=== PATIENT | male | born 1990 | race American Indian/Alaskan Native ===

== ENCOUNTER 2016-10-06 20:38 | Emergency (ER) | payer SELFPAY ==
--- NOTE | 2016-10-06 23:11 | Emergency Department Report ---
HPI - General Chief Complaint: Extremity Injury, Upper Time Seen by Provider: 10/06/16 22:44 - HPI HPI: he is a 26-year-old male presents to ED today for right hand swelling and pain 1 day. Patient states he was in the tub about to 3 hours ago when he fell he hit his hand on the top fell on his hand. Patient states he did not hit his head during the fall and had no loss of consciousness. Patient states he is injured his hand didn't think it's broken. He denies fevers/chills/nausea/vomiting/abdominal pain/chest pain shortness of breath or any other problems ED Past Medical Hx - Past Medical History Previous Medical History?: No - Surgical History Past Surgical History?: No - Social History Smoking Status: Unknown if ever smoked Substance Use Type: None - Medications Home Medications: Home Medications Medication Instructions Recorded Confirmed Last Taken Type Cyclobenzaprine [Flexeril] 10 mg PO QHS PRN #24 tablet 10/07/16 Unknown Rx HYDROcodone/APAP 5-325 [Hunt 1 each PO Q6HR PRN #20 tablet 10/07/16 Unknown Rx 5/325] Ibuprofen [Motrin] 800 mg PO Q8HR PRN #40 tablet 10/07/16 Unknown Rx ED Review of Systems ROS: Stated complaint: RT HAND INJURY Other details as noted in HPI Constitutional: denies: chills, fever Eyes: denies: eye pain, eye discharge, vision change ENT: denies: ear pain, throat pain, dental pain, hearing loss, congestion Respiratory: denies: cough, shortness of breath, wheezing Cardiovascular: denies: chest pain, palpitations Endocrine: no symptoms reported Gastrointestinal: denies: abdominal pain, nausea, diarrhea, constipation, hematemesis Genitourinary: denies: urgency, dysuria, frequency, hematuria Musculoskeletal: denies: back pain, joint swelling, arthralgia Skin: denies: rash, lesions Neurological: denies: headache, weakness, numbness, paresthesias, confusion Psychiatric: denies: anxiety, depression Hematological/Lymphatic: denies: easy bleeding, easy bruising Physical Exam - Physical Exam Vital Signs: Vital Signs 10/06/16 20:49 Temperature 98.4 F Pulse Rate 74 Respiratory 18 Rate Blood Pressure 148/90 O2 Sat by Pulse 100 Oximetry Physical Exam: GENERAL: Alert and oriented x3, no apparent distress, Normal Gait, atraumatic. HEAD: Head is normocephalic and a-traumatic. NECK: Supple. Non edematous, No carotid bruits. No lymphadenopathy or thyromegaly. No C-spine tenderness LUNGS: Symetrical with respiration, No wheezing, no rales or crackles, CTAB. HEART: S1, S2 present, regular rate and rhythm without murmur, no rubs, no gallops. Non tender to palpation EXTREMITIES/MUSCULOSKELETAL: No cyanosis, clubbing, rash, lesions or edema. Full ROM bilaterally. UE Pulses 2+ bilaterally. Right hand deformity seen over fourth and fifth metacarpal bone, swelling over the metacarpal fourth and fifth bone. Mild abrasions on fourth and fifth finger. No active bleeding. Capillary refill normal to septum bilaterally. Respiratory is intact. NEUROLOGIC: The patient is cooperative with no focal neurologic deficits. Cranial nerves II through XII are grossly intact. Normal speech. Normal sensation in bilateral upper extremities, No loss of sensation, SKIN: Warm and dry, No lesions, No ulceration or induration present. ED Course Vital Signs 10/06/16 20:49 Temperature 98.4 F Pulse Rate 74 Respiratory 18 Rate Blood Pressure 148/90 O2 Sat by Pulse 100 Oximetry - Consultations Consultation #1: Dr. Smiley in the orthopedic was contacted and discussed case with him. Images of the radiated neurology scans were sent to him for review. After reviewing the images Dr. Smiley suggested that patient is to come to his office for follow-up in the morning. He recommended putting fiberglass splint on patient 10/06/16 23:07 10/07/16 06:51 ED Medical Decision Making - Radiology Data Radiology results: report reviewed, image reviewed FINAL REPORT EXAM: XR HAND 3 RT HISTORY: deformity r/t injury TECHNIQUE: 4 views of the right hand PRIORS: None. FINDINGS: There are horizontally oriented fractures through the 4th and 5th metacarpal diaphyses. Fourth metacarpal fracture extends through the proximal to mid diaphysis. The distal fracture fragment is displaced 5 mm medially with respect to the proximal bone. There is approximately 50 degrees volar angulation of the distal bone. The 5th metacarpal fracture extends through the mid to distal diaphysis. The distal fracture fragment is displaced 5 mm laterally with respect to the proximal bone. There is approximately 65 degrees of volar angulation of the distal bone. There is no significant overlap. There is associated soft tissue swelling. Otherwise, the bones, joints and soft tissues are unremarkable. IMPRESSION: Acute right 4th and 5th metacarpal fractures as described above Transcribed By: KRISTINE Dictated By: CLAYTON SURESH MD Electronically Authenticated By: CLAYTON SURESH MD Signed Date/Time: 10/06/16 9286 - Medical Decision Making 26-year-old male presents with fracture of the fourth and fifth metacarpal bone of the right hand ED course: X-ray of the hAND ordered. X-ray hand shows angulated acute fracture , displaced off the right fourth and fifth metacarpal Discussed results find with the patient. Resulted above Discussed case with orthopedic Dr. Smiley who recommended sure sugar tong splint and for patient to call his office tomorrow for an appointment Discussed the patient the orthopedic doctor to call Dr. Smiley's office tomorrow morning at 9 AM to be worked in for the day. Fiberglass Volar short splint applied Neurovascular exam of right hand after splinting application: Normal, capillary Refill normal, patient is able to move fingers, fingers nonedematous. Vital signs are normal patient is in no acute distress Critical care attestation.: If time is entered above; I have spent that time in minutes in the direct care of this critically ill patient, excluding procedure time. ED Disposition Clinical Impression: Hand fracture, right Qualifiers: Encounter type: initial encounter Fracture type: closed Qualified Code(s): S62.91XA - Unspecified fracture of right wrist and hand, initial encounter for closed fracture Closed right hand fracture Qualifiers: Encounter type: initial encounter Qualified Code(s): S62.91XA - Unspecified fracture of right wrist and hand, initial encounter for closed fracture Disposition: DC-01 TO HOME OR SELFCARE Is pt being admited?: No Does the pt Need Aspirin: No Condition: Stable Instructions: Hand Fracture (ED), Splint Care (ED), Boxer Fracture (ED) Prescriptions: Cyclobenzaprine [Flexeril] 10 mg PO QHS PRN #24 tablet PRN Reason: Muscle Spasm HYDROcodone/APAP 5-325 [Hunt 5/325] 1 each PO Q6HR PRN #20 tablet PRN Reason: Pain Ibuprofen [Motrin] 800 mg PO Q8HR PRN #40 tablet PRN Reason: Pain Referrals: PRIMARY CARE, [Primary Care Provider] - 3-5 Days Forms: Accompanied Note, Work/School Release Form(ED)
[2016-10-07] MEDS ORDERED: NORCO 5/325 ONE (00:41)
[2016-10-07] MEDS ORDERED: NORCO 5/325 PO ONE (00:44)
[2016-10-07 02:02] VITALS: BP 130/74
== END 2016-10-07 02:05 | disposition home or self-care (01) ==
LOC: ED 20:38
DX: S62.91XA Unspecified fracture of right hand, initial encounter for closed fracture (principal); W20.8XXA Other cause of strike by thrown, projected or falling object, initial encounter; Y93.9 Activity, unspecified; Y92.9 Unspecified place or not applicable; Y99.9 Unspecified external cause status
CPT/HCPCS: 99283

== ENCOUNTER 2018-12-02 11:20 | Emergency (ER) | payer SELFPAY ==
[2018-12-02 11:29] VITALS: BP 158/92
--- NOTE | 2018-12-02 11:38 | Event Note ---
ED Screening Note ED Screening Note: pt c/o a rash on the penis began two days ago +itching no pain no penile discharge, no testicular edema, no testicular pain never had before This initial assessment/diagnostic orders/clinical plan/treatment(s) is/are subject to change based on patients health status, clinical progression and re-assessment by fellow clinical providers in the ED. Further treatment and workup at subsequent clinical providers discretion. Patient/guardian urged not to elope from the ED as their condition may be serious if not clinically assessed and managed.
--- NOTE | 2018-12-02 12:02 | Emergency Department Report ---
Chief Complaint: Skin Rash Stated Complaint: RASH Time Seen by Provider: 12/02/18 11:37 - HPI History of Present Illness: Mr. Washington presents with rash on his genitals. He is concerned about genital herpes contracted from previous partner.. From verbal history and brief examination, genital herpes is confirmed. I provided written and verbal education. Medical screening exam performed. No acute emergent condition exists at this current time. Referred to outside clinic. - Exam Vital Signs: Vital Signs 12/02/18 11:28 Temperature 98.8 F Pulse Rate 75 Respiratory 18 Rate Blood Pressure 158/92 O2 Sat by Pulse 100 Oximetry MSE screening note: Focused history and physical exam performed. Due to findings the following was ordered: ED Disposition for MSE Clinical Impression: Genital herpes Disposition: MED SCREENING EXAM-LEFT Is pt being admited?: No Does the pt Need Aspirin: No Condition: Stable Instructions: Genital Herpes Simplex (ED) Referrals: [facility] [Outside] - 3-5 Days Forms: Work/School Release Form(ED)
== END 2018-12-02 12:07 | disposition left against medical advice (07) ==
LOC: ED 11:20
DX: A60.00 Herpesviral infection of urogenital system, unspecified (principal)